=== PATIENT | male | born 1985 | race Caucasian/White ===

== ENCOUNTER 2016-12-25 20:28 | Emergency (ER) | payer OTHER ==
[~2016-12-25] VITALS: Ht 182.9 cm; Wt 84.4 kg
[~2016-12-25 20:28] MED LIST: CLINDAMYCIN HC300 MG ORAL; CYCLOBENZAPRINE10 MG ORAL; IBUPROFEN400 MG ORAL; IBUPROFEN600 MG ORAL; LIDOCAINE VISCO20 ML PO; PSEUDOEPHEDRINE30 MG PO; ZYRTEC10 MG ORAL
[2016-12-25] MEDS ORDERED: Famotidine 20 MG/ 2ML VIAL IVP ONE (20:45)
[2016-12-25] MEDS ORDERED: DiphenhydrAMINE 50mg/ml Inj IVP ONE (20:45)
[2016-12-25] MEDS ORDERED: DiphenhydrAMINE 50mg/ml Inj IM ONE ×2 (20:45→21:00)
[2016-12-25] MEDS ORDERED: BENADRYL25 MG ORAL (21:12)
[2016-12-25] MEDS ORDERED: PREDNISONE20 M1 PO (21:12)
[2016-12-25] MEDS ORDERED: EPIPEN 2-P0.3 MG/0.3 IM (21:12)
[2016-12-25 21:27] VITALS: BP 131/84
[2016-12-25 21:30] VITALS: BP 131/84
--- NOTE | 2016-12-25 22:30 | Emergency Room Report ---
History of Present Illness General Chief Complaint: Allergic Reaction Source: Patient Present Illness HPI The patient is a 31-year-old male who presented after having increased generalized skin rash and itchiness. Patient had reportedly had prior history of allergies and had been taking Benadryl as well as Zyrtec in the past. Patient stated that he had previously been allergy tested and had a variety of diagnosis for a skin rashes. The patient noticed that he was having some lip swelling. He was not having any difficulty breathing. Allergies: Coded Allergies: PENICILLINS (Verified Allergy, Unknown, 02/09/16) Processed Meats (Verified Allergy, Unknown, 02/09/16) RED DYE (Unverified Allergy, Unknown, 04/04/16) Uncoded Allergies: STEROIDS (Allergy, Mild, 04/04/16) Patient History Past Medical History: see triage record Reviewed Nursing Documentation: PMH: Agreed, PSxH: Agreed Review of Systems All Other Systems: negative except mentioned in HPI Physical Exam Vital Signs Date Time Temp Pulse Resp B/P Pulse Ox O2 Delivery O2 Flow Rate FiO2 12/25/16 20:30 97.3 76 18 135/81 97 12/25/16 21:27 Room Air General Appearance: well appearing, no apparent distress, alert, non-toxic Head: normocephalic, atraumatic ENT: hearing grossly normal, normal voice, other - minimal swelling to tongue and lip if any Neck: full range of motion, supple Respiratory: no respiratory distress, speaking full sentences Musculoskeletal: no calf tenderness Neurologic: normal inspection, alert, oriented x3, responsive, email campaign specialist III-XII nml as tested, motor strength/tone normal, normal gait Psychiatric: mood/affect normal Skin: no rash, other - excoriations with some urticaria Medical Decision Making Diagnostic Impression: Primary Impression: Rash and nonspecific skin eruption ER Course Patient presented for skin rash. Differential diagnosis included wasn't limited to allergic reaction, contact dermatitis, Cavanaugh-Mikey syndrome, excoriations among others. The patient had a minimal amount of urticaria. The patient was noted to have some excoriations. This does not appear to be an anaphylactic reaction. Patient was given IM Benadryl. Patient showed no airway compromise and minimal lip swelling. The tongue appeared normal. The patient was given prescriptions for steroids and an EpiPen. He is advised to return if he became worse. Last Vital Signs Date Time Temp Pulse Resp B/P Pulse Ox O2 Delivery O2 Flow Rate FiO2 12/25/16 21:30 97.4 79 19 131/84 99 Room Air Status: improved Disposition: HOME, SELF-CARE Condition: Stable Scripts Epinephrine (Epipen 2-Abdifatah) 0.3 Mg/0.3 Ml Auto.injct 0.3 MG IM NEEDED, #1 EA Prov: Enrique Santiago 12/25/16 Prednisone (Prednisone) 20 Mg Tablet 40 MG PO DAILY, #10 TAB Prov: Enrique Santiago 12/25/16 Diphenhydramine Hcl* (BENADRYL*) 25 Mg Capsule 25 MG ORAL Q6H Y for Itching, #30 CAP Prov: Enrique Santiago 12/25/16 Referrals: [facility],REFERRING (PCP) Patient Instructions: Allergies Enrique Santiago Dec 25, 2016 22:30
== END 2016-12-25 21:31 | disposition home or self-care (01) ==
LOC: EMR 20:45
DX: R21 Rash and other nonspecific skin eruption (principal); Z88.0 Allergy status to penicillin; Z88.8 Allergy status to other drugs, medicaments and biological substances
CPT/HCPCS: 96372; 99284; J1200